=== PATIENT | male | born 1970 | race Two or more races ===

== ENCOUNTER 2024-08-12 17:43 | Inpatient (IN) | payer OTHER ==
[~2024-08-12] VITALS: Ht 190.5 cm; Wt 102.5 kg
[2024-08-12] MEDS ORDERED: 0.9 % SODIUM CHLORIDE 1,000 ML IV SCH (18:45)
[2024-08-12] MEDS ORDERED: ONDANSETRON HCL 2 MG/ML VIAL IV STA (19:07)
[2024-08-12] MEDS ORDERED: ONDANSETRON HCL 2 MG/ML VIAL ONE (19:13)
[2024-08-12 19:21] LABS: BASO % 0.1 % (0.1-1.2); HEMATOCRIT 48.4 % (40.1-51.0); HEMOGLOBIN 16.5 g/dL (13.7-17.5); LYMPH # 0.33 (1.18-3.74); LYMPH % 4.5 % (19.3-53.1); MEAN CORPUSCULAR HEMOGLOBIN 28.9 pg (25.6-32.2); MONO # 0.27 (0.24-0.82); MONO % 3.7 % (4.7-12.5); NEUT # 6.73 (1.56-6.13); NEUT % 91.4 % (34.0-71.1); PLATELET COUNT 249 K/uL (163-369)
[2024-08-12 19:46] LABS: ALBUMIN 3.8 gm/dL (3.4-5.0); BILIRUBIN TOTAL 1.26 mg/dL (0.3-1.2); CALCIUM 9.1 mg/dL (8.5-10.1); CREATININE SERUM 0.92 mg/dL (0.70-1.30); GFR 86.73; POTASSIUM 3.44 mEq/L (3.5-5.1); TOTAL PROTEIN 7.8 gm/dL (6.4-8.2)
[2024-08-12 20:49] LABS: URINE APPEARANCE Clear; URINE BILIRRUBIN Negative (NEGATIVE); URINE BLOOD Negative; URINE COLOR Yellow; URINE KETONE Negative (NEGATIVE); URINE LEUKOCYTE Negative; URINE NITRATE Negative; URINE PROTEIN Negative (NEGATIVE); URINE UROBILINOGEN 0.2 E.U./dl
[2024-08-12 20:54] LABS: URINE BACTERIA 6.1 uL (0.0-1933); URINE EPITHELIAL CELLS 5.6 uL (0.0-38.8); URINE WBC 3.7 uL (0.0-23.2)
[2024-08-12 20:57] LABS: URINE GLUCOSE 500 MG/DL (NEGATIVE); URINE RBC 1.3 uL (0.0-20.8)
[2024-08-12] MEDS ORDERED: LIDOCAINE HCL VISCOUS 20MG/ML BLIST 15ML MM ONE (22:27)
[2024-08-12] MEDS ORDERED: MORPHINE SULFATE 4 MG/ML VIAL IV ONE (23:45)
[2024-08-13] MEDS ORDERED: FAMOTIDINE/PF 20 MG/2 ML VIAL IV PUSH STA (06:58)
[2024-08-13] MEDS ORDERED: FAMOTIDINE/PF 20 MG/2 ML VIAL ONE (07:37)
[2024-08-13] MEDS ORDERED: 0.9 % SODIUM CHLORIDE 1,000 ML IV SCH (08:45)
[2024-08-13 10:33] VITALS: BP 133/77
[2024-08-13 19:02] VITALS: BP 145/88; O2SAT 98
[2024-08-13] MEDS ORDERED: ONDANSETRON HCL 2 MG/ML VIAL IV PRN (20:15)
[2024-08-14 00:13] VITALS: BP 116/71; O2SAT 96
[2024-08-14 08:27] VITALS: BP 129/91; O2SAT 99
[2024-08-14] MEDS ORDERED: DEXTROSE 5 % AND 0.9 % NACL 1,000 ML IV SCH (08:45)
[2024-08-14] MEDS ORDERED: PROMETHAZINE HCL 25 MG/ML AMPUL IV SCH (09:00)
[2024-08-14] MEDS ORDERED: METOCLOPRAMIDE HCL 5 MG/ML VIAL IV SCH (09:00)
[2024-08-14] MEDS ORDERED: PANTOPRAZOLE SODIUM 40 MG/VIAL VIAL IV PUSH SCH (11:36)
[2024-08-14 17:38] VITALS: BP 135/86; O2SAT 98
[2024-08-14] MEDS ORDERED: DIPHENHYDRAMINE HCL 50 MG/ML VIAL 1ML IV SCH (21:00)
[2024-08-14 21:11] LABS: CALCIUM 8.9 mg/dL (8.5-10.1); CREATININE SERUM 0.72 mg/dL (0.70-1.30); GFR 115.09; POTASSIUM 4.55 mEq/L (3.5-5.1)
[2024-08-15 01:27] VITALS: BP 131/70; O2SAT 98
[2024-08-15 06:16] LABS: BASO % 0.8 % (0.1-1.2); EOS # 0.37 (0.04-0.54); EOS % 5.7 % (0.7-7.0); HEMATOCRIT 42.6 % (40.1-51.0); HEMOGLOBIN 14.2 g/dL (13.7-17.5); LYMPH # 1.71 (1.18-3.74); LYMPH % 26.6 % (19.3-53.1); MEAN CORPUSCULAR HEMOGLOBIN 28.7 pg (25.6-32.2); MONO # 0.64 (0.24-0.82); MONO % 9.9 % (4.7-12.5); NEUT # 3.66 (1.56-6.13); NEUT % 56.8 % (34.0-71.1); PLATELET COUNT 221 K/uL (163-369); RED BLOOD COUNT 4.95 M/uL (4.63-6.08); RED CELL DISTRIBUTION WIDTH 12.6 % (11.6-14.4)
[2024-08-15 06:44] LABS: CALCIUM 8.2 mg/dL (8.5-10.1); CREATININE SERUM 0.8 mg/dL (0.70-1.30); GFR 101.91; MAGNESIUM 1.8 mg/dL (1.8-2.4); PHOSPHOROUS 3.3 mg/dL (2.5-4.9); POTASSIUM 5.04 mEq/L (3.5-5.1)
[2024-08-15 07:52] VITALS: BP 126/80
== END 2024-08-15 12:16 | disposition home or self-care (01) | DRG 382 ==
LOC: ER 17:43 → MEDI 08-13 09:16 → SEC-K 08-13 09:16 → MEDI 08-13 12:11
PROVIDERS: Emergency Medicine; ADMIT Internal Medicine; ATTEND Internal Medicine
PROC: BW21YZZ Computerized Tomography (CT Scan) of Abdomen and Pelvis using Other Contrast (ICD-10-PCS; principal; 2024-08-12)
DX: K31.1 Adult hypertrophic pyloric stenosis (principal); K21.9 Gastro-esophageal reflux disease without esophagitis

== ENCOUNTER 2024-11-18 16:26 | Emergency (ER) | payer OTHER ==
[~2024-11-18] VITALS: Ht 188 cm; Wt 99.8 kg
[2024-11-18] MEDS ORDERED: GUAIFENESIN/DEXTROMETHORPHAN 100MG/10ML BLIST.PACK PO ONE ×2 (17:45→18:34)
[2024-11-18 19:30] LABS: BASO % 0.5 % (0.1-1.2); EOS # 0.34 (0.04-0.54); EOS % 3.1 % (0.7-7.0); LYMPH # 2.60 (1.18-3.74); LYMPH % 23.4 % (19.3-53.1); MEAN PLATELET VOLUME 9.10 fl (9.4-12.4); MONO # 1.00 (0.24-0.82); MONO % 9.0 % (4.7-12.5); NEUT # 7.08 (1.56-6.13); NEUT % 63.7 % (34.0-71.1); RED CELL DISTRIBUTION WIDTH 13.0 % (11.6-14.4)
[2024-11-18 19:48] LABS: COVID-19 AG NEGATIVE (NEGATIVE)
[2024-11-18] MEDS ORDERED: TUSSIN DM LIQU118 ML PO (20:30)
[2024-11-18] MEDS ORDERED: ZITHROMAX500 MG PO (20:30)
== END 2024-11-18 21:10 | disposition home or self-care (01) ==
LOC: ER 16:26
PROVIDERS: General Practice
DX: J06.9 Acute upper respiratory infection, unspecified (principal); J00 Acute nasopharyngitis [common cold]; Z20.822 Contact with and (suspected) exposure to COVID-19; Z85.46 Personal history of malignant neoplasm of prostate